=== PATIENT | male | born 1970 | race Caucasian/White ===

== ENCOUNTER 2021-05-01 08:26 | Observation (INO) | payer BC ==
[2021-05-01 09:18] LABS: Absolute Neutrophil Ct (ANC) 3.39 (1.4-6.9); Basophil (Absolute #) 0.02 (0-0.4); Eosinophil (Absolute #) 0.42 (0-0.5); Lymphocyte (Absolute #) 1.73 (1.0-4.6); Lymphocytes % 28.7 % (24.0-44.0); Mean Cell Volume 89.1 fl (78-100); Mean Corpuscular Hemoglobin 30.4 pg (26-32); Mean Corpuscular Hgb Concent. 34.1 g/dl (32-36); Monocyte (Absolute #) 0.46 (0.0-1.3); Monocytes % 7.6 % (0.0-12.0); Neutrophil % 56.4 % (36.0-66.0); Platelet Count 217 K/mm3 (150-450); Red Blood Count 4.94 M/mm3 (4.1-5.6); Red Cell Distribution Width 12.6 % (11.5-14.0)
[2021-05-01 09:39] LABS: ALBUMIN 4.2 g/dL (3.5-5.0); ALKALINE PHOSPHATASE 58 U/L (38-126); ANION GAP 11.2 MEQ/L (5-15); BLOOD UREA NITROGEN 22 mg/dL (9-20); CHLORIDE 103 mmol/L (98-107); Calcium 8.9 mg/dL (8.4-10.2); Carbon Dioxide 28 mmol/L (22-30); Creatinine 1 0.99 mg/dL (0.66-1.25); EST GLOMERULAR FILTRATION RATE > 60.0 ML/MIN; Glucose 146 mg/dL (74-106); NT PRO BNP 24.1 pg/mL (0-900); Potassium 4.2 mmol/L (3.5-5.1); SGOT/AST 26 U/L (17-59); SGPT/ALT 24 U/L (0-50); SODIUM 138 mmol/L (137-145); Total Protein 7.3 g/dL (6.3-8.2)
--- NOTE | 2021-05-01 09:45 | XRAY ---
Indication: Chest pain. Comparison: April 01, 2021. Portable chest continues to demonstrate normal heart and lungs. No new/acute findings.
--- NOTE | 2021-05-01 09:46 | ERPHSYRPT ---
- History of Present Illness Time Seen by Provider: 05/01/21 08:45 Historian: patient Exam Limitations: no limitations Patient Subjective Stated Complaint: Chest pain Triage Nursing Assessment: Patient ambulated back to ED and transferred self to bed. Patient A+O X3. Patient's skin pink, warm and dry. Patient complains of left sided chest pain that radiates down left arm into elbow 05/08. Patient states at his desk around 0730 when the pain came on and he became nauseated. Patient's lungs clear a/p judith. Heart tones audible. Physician History: Patient is a 50-year-old male presents to our ED with complaints of left-sided chest pain that radiates into his left arm down to the elbow. Patient has been experiencing left-sided chest pain with radiation intermittently. Patient's last episode occurred today at approximately 7:30 AM. Symptoms are associated with nausea. No vomiting. No diarrhea. No rash. No fever. No trauma. Symptoms are mild to moderate in intensity. No specific worsening improving factors. Patient was resting when this last episode of chest pain occurred. Patient is otherwise healthy. He voices no other complaints or concerns at this time. Timing/Duration: today Activities at Onset: none Quality: aching Location: other (Left chest) Chest Pain Radiation: arm Severity of Pain-Max: moderate Severity of Pain-Current: mild Modifying Factors: Improves With: nothing Associated Symptoms: nausea, No palpitations, No hurts to breathe, No chills, No headache, No edema Prior Chest Pain/Cardiac Workup: no prior chest pain Nitro Today/Relief: no nitro taken today Aspirin Treatment Today: no aspirin today Allergies/Adverse Reactions: No Known Drug Allergies Allergy (Verified 05/01/21 08:29) Home Medications: Levothyroxine Sodium 150 Mcg [Synthroid 150 Mcg] 150 mcg PO DAILY 01/13/12 [History] Metformin HCl 500 mg [Glucophage 500 MG] 1 tab PO DAILY 05/01/21 [History] Hx Tetanus, Diphtheria Vaccination/Date Given: No Hx Influenza Vaccination/Date Given: No Hx Pneumococcal Vaccination/Date Given: No Immunizations Up to Date: Yes Travel Risk - International Travel Have you traveled outside of the country in past 3 weeks: No - Coronavirus Screening Are you exhibiting any of the following symptoms?: No Close contact with a COVID-19 positive Pt in past 14-21 Days: No - Vaccine Status Have you recieved a Covid-19 vaccination: Yes Medical Receptionist Biller: [employer] - Vaccination Dates Date of 2cond Vaccination (if applicable): November 2020 - Review of Systems Constitutional: No Symptoms, No Fever, No Chills Eyes: No Symptoms Ears, Nose, & Throat: No Symptoms Respiratory: No Symptoms, No Cough, No Dyspnea Cardiac: No Symptoms, No Chest Pain, No Edema, No Syncope Abdominal/Gastrointestinal: No Symptoms, No Abdominal Pain, No Nausea, No Vomiting, No Diarrhea Genitourinary Symptoms: No Symptoms, No Dysuria Musculoskeletal: No Symptoms, No Back Pain, No Neck Pain Skin: No Symptoms, No Rash Neurological: No Symptoms, No Dizziness, No Focal Weakness, No Sensory Changes Psychological: No Symptoms Endocrine: No Symptoms Hematologic/Lymphatic: No Symptoms Immunological/Allergic: No Symptoms All Other Systems: Reviewed and Negative - Past Medical History Pertinent Past Medical History: Yes Neurological History: No Pertinent History ENT History: No Pertinent History Cardiac History: No Pertinent History Respiratory History: No Pertinent History Endocrine Medical History: Diabetes Type II, Hypothyroidism Musculoskeletal History: No Pertinent History GI Medical History: No Pertinent History History: No Pertinent History Psycho-Social History: No Pertinent History Male Reproductive Disorders: No Pertinent History - Past Surgical History Past Surgical History: Yes Neuro Surgical History: No Pertinent History Cardiac: No Pertinent History Respiratory: No Pertinent History Gastrointestinal: No Pertinent History Genitourinary: No Pertinent History Musculoskeletal: Orthopedic Surgery Other Surgical History: right arm - knees - Social History Smoking Status: Never smoker Exposure to second hand smoke: No Drug Use: none Patient Lives Alone: No - Nursing Vital Signs Nursing Vital Signs: Initial Vital Signs Temperature 97.8 F 05/01/21 08:32 Pulse Rate 88 05/01/21 08:32 Respiratory Rate 18 05/01/21 08:32 Blood Pressure 161/99 05/01/21 08:32 O2 Sat by Pulse Oximetry 98 05/01/21 08:32 Pain Scale Pain Intensity 3 - Physical Exam General Appearance: no apparent distress, alert Eye Exam: PERRL/EOMI, eyes nml inspection Ears, Nose, Throat Exam: normal ENT inspection, TMs normal, pharynx normal, moist mucous membranes Neck Exam: normal inspection, non-tender, supple, full range of motion Respiratory Exam: normal breath sounds, lungs clear, airway intact, No chest tenderness, No respiratory distress Cardiovascular Exam: regular rate/rhythm, normal heart sounds, normal peripheral pulses Gastrointestinal/Abdomen Exam: soft, normal bowel sounds, No tenderness, No distention, No mass Back Exam: normal inspection, normal range of motion, No CVA tenderness, No vertebral tenderness Extremity Exam: normal inspection, normal range of motion Neurologic Exam: alert, oriented x 3, cooperative, normal mood/affect, sensation nml, No motor deficits Skin Exam: normal color, warm, dry Lymphatic Exam: No adenopathy SpO2 Interpretation: normal SpO2: 98 O2 Delivery: Room Air - Course Nursing assessment & vital signs reviewed: Yes EKG Interpreted by Me: RATE (87), Sinus Rhythm, NORMAL AXIS, NORMAL INTERVALS - Radiology Exams Chest X-ray Interpretation: Teleradiologist Report (Normal heart lungs and bony thorax. No new or acute findings.) Ordered Tests: Active Orders 24 hr Category Date Time Status Greenhouse Specialist STAT Care 05/01/21 08:44 Active EKG-ER Only STAT Care 05/01/21 08:43 Active IV Insertion STAT Care 05/01/21 08:43 Active Pulse Oximetry (ED) STAT Care 05/01/21 08:43 Active CHEST 1 VIEW (PORTABLE) Stat Exams 05/01/21 08:44 Completed CBC W DIFF Stat Lab 05/01/21 09:12 Completed CMP Stat Lab 05/01/21 09:12 Completed NT PRO BNP Stat Lab 05/01/21 09:12 Completed TROPONIN Q3H Lab 05/01/21 09:12 Completed TROPONIN Q3H Lab 05/01/21 11:05 Completed TROPONIN Q3H Lab 05/01/21 14:45 Ordered TROPONIN Q3H Lab 05/01/21 17:45 Ordered TROPONIN Q3H Lab 05/01/21 20:45 Ordered Transfer Order Routine Transfer 05/01/21 Ordered Medication Summary Generic Name Dose Route Start Last Admin Trade Name Freq PRN Reason Stop Dose Admin Enoxaparin Sodium 40 mg 05/01/21 12:01 Enoxaparin Sodium 40 Mg/0.4 Ml Syringe SQ 05/01/21 12:02 STAT ONE Remdesivir 200 mg/ Sodium 250 mls @ 125 mls/hr 05/01/21 12:03 Chloride IV 05/01/21 14:02 ONCE ONE Discontinued Medications Generic Name Dose Route Start Last Admin Trade Name Freq PRN Reason Stop Dose Admin Aspirin 324 mg 05/01/21 09:55 05/01/21 10:11 Aspirin 81 Mg Tab.Chew PO 05/01/21 09:56 324 mg STAT ONE Administration Aspirin Confirm 05/01/21 10:10 Aspirin 81 Mg Tab.Chew Administered 05/01/21 10:11 Dose 324 mg .ROUTE .STK-MED ONE Nitroglycerin 1 gm 05/01/21 09:55 05/01/21 10:12 Nitroglycerin 1 Gm Packet TOP 05/01/21 09:56 1 gm STAT ONE Administration Nitroglycerin Confirm 05/01/21 10:11 Nitroglycerin 1 Gm Packet Administered 05/01/21 10:12 Dose 1 gm .ROUTE .STK-MED ONE Lab/Rad Data: Laboratory Result Diagrams 05/01/21 09:12 05/01/21 09:12 Laboratory Results 05/01/21 05/01/21 05/01/21 Range/Units 11:05 10:24 09:12 WBC (4.0-10.5) K/mm3 RBC (4.1-5.6) M/mm3 Hgb (12.5-18.0) gm/dl Hct (42-50) % MCV (78-100) fl MCH (26-32) pg MCHC (32-36) g/dl RDW (11.5-14.0) % Plt Count (150-450) K/mm3 MPV (7.5-11.0) fl Gran % (36.0-66.0) % Eos # (Auto) (0-0.5) Absolute Lymphs (auto) (1.0-4.6) Absolute Monos (auto) (0.0-1.3) Lymphocytes % (24.0-44.0) % Monocytes % (0.0-12.0) % Eosinophils % (0.00-5.0) % Basophils % (0.0-0.4) % Absolute Granulocytes (1.4-6.9) Basophils # (0-0.4) Sodium (137-145) mmol/L Potassium (3.5-5.1) mmol/L Chloride (98-107) mmol/L Carbon Dioxide (22-30) mmol/L Anion Gap (5-15) MEQ/L BUN (9-20) mg/dL Creatinine (0.66-1.25) mg/dL Estimated GFR ML/MIN Glucose (74-106) mg/dL Calcium (8.4-10.2) mg/dL Total Bilirubin (0.2-1.3) mg/dL AST (17-59) U/L ALT (0-50) U/L Alkaline Phosphatase (38-126) U/L Troponin I < 0.012 < 0.012 (0.000-0.034) ng/mL NT-Pro-B Natriuret Pep (0-900) pg/mL Serum Total Protein (6.3-8.2) g/dL Albumin (3.5-5.0) g/dL Influenza Type A Ag NEGATIVE (NEGATIVE) Influenza Type B Ag NEGATIVE (NEGATIVE) RSV (PCR) NEGATIVE (Negative) SARS-CoV-2 (PCR) POSITIVE A (NEGATIVE) 05/01/21 05/01/21 Range/Units 09:12 09:12 WBC 6.0 (4.0-10.5) K/mm3 RBC 4.94 (4.1-5.6) M/mm3 Hgb 15.0 (12.5-18.0) gm/dl Hct 44.0 (42-50) % MCV 89.1 (78-100) fl MCH 30.4 (26-32) pg MCHC 34.1 (32-36) g/dl RDW 12.6 (11.5-14.0) % Plt Count 217 (150-450) K/mm3 MPV 10.0 (7.5-11.0) fl Gran % 56.4 (36.0-66.0) % Eos # (Auto) 0.42 (0-0.5) Absolute Lymphs (auto) 1.73 (1.0-4.6) Absolute Monos (auto) 0.46 (0.0-1.3) Lymphocytes % 28.7 (24.0-44.0) % Monocytes % 7.6 (0.0-12.0) % Eosinophils % 7.0 H (0.00-5.0) % Basophils % 0.3 (0.0-0.4) % Absolute Granulocytes 3.39 (1.4-6.9) Basophils # 0.02 (0-0.4) Sodium 138 (137-145) mmol/L Potassium 4.2 (3.5-5.1) mmol/L Chloride 103 (98-107) mmol/L Carbon Dioxide 28 (22-30) mmol/L Anion Gap 11.2 (5-15) MEQ/L BUN 22 H (9-20) mg/dL Creatinine 0.99 (0.66-1.25) mg/dL Estimated GFR > 60.0 ML/MIN Glucose 146 H (74-106) mg/dL Calcium 8.9 (8.4-10.2) mg/dL Total Bilirubin 0.70 (0.2-1.3) mg/dL AST 26 (17-59) U/L ALT 24 (0-50) U/L Alkaline Phosphatase 58 (38-126) U/L Troponin I (0.000-0.034) ng/mL NT-Pro-B Natriuret Pep 24.1 (0-900) pg/mL Serum Total Protein 7.3 (6.3-8.2) g/dL Albumin 4.2 (3.5-5.0) g/dL Influenza Type A Ag (NEGATIVE) Influenza Type B Ag (NEGATIVE) RSV (PCR) (Negative) SARS-CoV-2 (PCR) (NEGATIVE) - Progress Progress: improved Air Movement: good Progress Note: 50-year-old male history of diabetes type 2 presents to our ED with recurrent chest pain. Preliminary work-up negative. EKG shows normal sinus rhythm. No ischemic changes. Initial troponin negative. Chest x-ray nonremarkable. Preliminary laboratory work-up negative as well. In light of patient's risk factors and chest pain characteristics patient will be admitted for chest pain rule out. Covid test positive. Patient will be admitted to Dr. Wyatt covering the Covid unit. Plan of care discussed with patient. He agrees to admission [facility] for further evaluation and treatment. 05/01/21 12:04 Blood Culture(s) Obtained: No Antibiotics given: No Discussed with DrKayla: Pawel ([facility] accepted admission however patient's Covid test resulted as positive.), Bobby (Case discussed with Dr. Wyatt covering the Covid unit. Dr. Wyatt accepts admission to observation.) Will see patient in: hospital (observation) Counseled pt/family regarding: lab results, diagnosis, rad results - Departure Departure Disposition: Observation Clinical Impression: ACS (acute coronary syndrome), Chest pain, SARS-CoV-2 positive Condition: Stable Critical Care Time: No Referrals: HILLARY EAGLE, [facility]ISH[facility] [employer] [Primary Care Provider] - Follow up/PCP as directed
[2021-05-01] MEDS ORDERED: NITRO-BID 2% UD PACKETS TOP ONE (09:55)
[2021-05-01] MEDS ORDERED: BABY ASPIRIN 81 MG CHEW PO ONE (09:55)
[2021-05-01] MEDS ORDERED: BABY ASPIRIN 81 MG CHEW ONE (10:10)
[2021-05-01] MEDS ORDERED: NITRO-BID 2% UD PACKETS ONE (10:11)
[2021-05-01 11:37] LABS: INFLUENZA A NEGATIVE (NEGATIVE); INFLUENZA B NEGATIVE (NEGATIVE); RESPIRATORY SYNCTIAL VIRUS NEGATIVE (Negative)
[2021-05-01 11:53] LABS: SARS-CoV-2 Xpert Express POSITIVE (NEGATIVE)
[2021-05-01] MEDS ORDERED: ENOXAPARIN SODIUM SQ ONE (12:01)
[2021-05-01] MEDS ORDERED: REMDESIVIR 200 MG in Sodium Chloride 0.9% 250 ML 250 ML IV ONE (12:03)
[2021-05-01] MEDS ORDERED: TYLENOL 325 MG PO PRN (13:59)
[2021-05-01] MEDS ORDERED: MAALOX ES 30 ML UNIT DOSE PO PRN (13:59)
[2021-05-01] MEDS ORDERED: MILK OF MAGNESIA 30 ML PO PRN (13:59)
[2021-05-01] MEDS ORDERED: Senokot-S Tablet PO PRN (13:59)
[2021-05-01] MEDS ORDERED: Zofran 4 MG/2 ML VIAL IV PRN (13:59)
[2021-05-01] MEDS: ENOXAPARIN SODIUM SQ SCH (15:17)
--- NOTE | 2021-05-01 16:46 | PCM.HP ---
History of Present Illness - Chief Complaint Chief Complaint: covid. ACS. Chest pain. History of Present Illness: is a 50 year old male who presented to the ER today with a complaint of pain in the left chest/underarm area with numbness of his left arm. He has been having similar symptoms for the last month or so but was more worrisome today, he has no associated shortness of breath, no nausea, no diaphoresis. he denies fever, cough or other signs of acute illness. of note he had family members in the home with covid in March, he tested negative and has never had any symptoms. - Review of Systems Constitutional: No Symptoms, No Fever, No Chills Respiratory: No Cough, No Short Of Breath Cardiac: Chest Pain, No Edema, No Palpitations Genitourinary Symptoms: No Dysuria Skin: No Rash Neurological: No Dizziness, No Focal Weakness, No Sensory Changes All Other Systems: Reviewed and Negative Medications & Allergies Home Medications: Home Medication List Levothyroxine Sodium 150 Mcg [Synthroid 150 Mcg] 150 mcg PO DAILY 01/13/12 [History Confirmed 05/01/21] Metformin HCl 500 mg [Glucophage 500 MG] 1 tab PO DAILY 05/01/21 [History Confirmed 05/01/21] Allergies/Adverse Reactions: Allergies Allergy/AdvReac Type Severity Reaction Status Date / Time No Known Drug Allergies Allergy Verified 05/01/21 08:29 - Past Medical History Past Medical History: Yes Neurological History: No Pertinent History ENT History: No Pertinent History Cardiac History: No Pertinent History Respiratory History: No Pertinent History Endocrine Medical History: Diabetes Type II, Hypothyroidism Musculoskelatal History: No Pertinent History GI Medical History: No Pertinent History History: No Pertinent History Pyscho-Social History: No Pertinent History Male Reproductive Disorders: No Pertinent History - Past Surgical History Past Surgical History: Yes Neuro Surgical History: No Pertinent History Cardiac History: No Pertinent History Respiratory Surgery: No Pertinent History GI Surgical History: No Pertinent History Genitourinary Surgical Hx: No Pertinent History Musculskeletal Surgical Hx: Orthopedic Surgery Other Surgical History: right arm - knees - Social History Smoking Status: Never smoker Exposure to second hand smoke: No Alcohol: None Drug Use: none - Physical Exam Vital Signs: Vital Signs - 24 hr Temp Pulse Resp BP Pulse Ox 05/01/21 15:59 85 16 96 05/01/21 14:57 97.8 F 70 16 118/75 95 05/01/21 14:44 12 05/01/21 12:06 98 05/01/21 12:05 84 18 121/78 96 05/01/21 11:05 72 18 121/80 95 05/01/21 10:26 80 18 140/76 95 05/01/21 08:56 98 05/01/21 08:32 97.8 F 88 18 161/99 98 General Appearance: no apparent distress, obese Respiratory Exam: normal breath sounds, lungs clear, No respiratory distress Cardiovascular Exam: regular rate/rhythm, normal heart sounds, normal peripheral pulses Gastrointestinal/Abdomen Exam: soft, normal bowel sounds, No tenderness, No mass Extremity Exam: normal inspection Skin Exam: normal color, warm, dry, No rash Results - Labs Lab/Micro Results: Lab Results-Last 24 Hours 05/01/21 05/01/21 05/01/21 Range/Units 09:12 09:12 09:12 WBC 6.0 (4.0-10.5) K/mm3 RBC 4.94 (4.1-5.6) M/mm3 Hgb 15.0 (12.5-18.0) gm/dl Hct 44.0 (42-50) % MCV 89.1 (78-100) fl MCH 30.4 (26-32) pg MCHC 34.1 (32-36) g/dl RDW 12.6 (11.5-14.0) % Plt Count 217 (150-450) K/mm3 MPV 10.0 (7.5-11.0) fl Gran % 56.4 (36.0-66.0) % Eos # (Auto) 0.42 (0-0.5) Absolute Lymphs (auto) 1.73 (1.0-4.6) Absolute Monos (auto) 0.46 (0.0-1.3) Lymphocytes % 28.7 (24.0-44.0) % Monocytes % 7.6 (0.0-12.0) % Eosinophils % 7.0 H (0.00-5.0) % Basophils % 0.3 (0.0-0.4) % Absolute Granulocytes 3.39 (1.4-6.9) Basophils # 0.02 (0-0.4) Sodium 138 (137-145) mmol/L Potassium 4.2 (3.5-5.1) mmol/L Chloride 103 (98-107) mmol/L Carbon Dioxide 28 (22-30) mmol/L Anion Gap 11.2 (5-15) MEQ/L BUN 22 H (9-20) mg/dL Creatinine 0.99 (0.66-1.25) mg/dL Estimated GFR > 60.0 ML/MIN Glucose 146 H (74-106) mg/dL Calcium 8.9 (8.4-10.2) mg/dL Total Bilirubin 0.70 (0.2-1.3) mg/dL AST 26 (17-59) U/L ALT 24 (0-50) U/L Alkaline Phosphatase 58 (38-126) U/L Troponin I < 0.012 (0.000-0.034) ng/mL NT-Pro-B Natriuret Pep 24.1 (0-900) pg/mL Serum Total Protein 7.3 (6.3-8.2) g/dL Albumin 4.2 (3.5-5.0) g/dL Influenza Type A Ag (NEGATIVE) Influenza Type B Ag (NEGATIVE) RSV (PCR) (Negative) SARS-CoV-2 (PCR) (NEGATIVE) 05/01/21 05/01/21 05/01/21 Range/Units 10:24 11:05 14:18 WBC (4.0-10.5) K/mm3 RBC (4.1-5.6) M/mm3 Hgb (12.5-18.0) gm/dl Hct (42-50) % MCV (78-100) fl MCH (26-32) pg MCHC (32-36) g/dl RDW (11.5-14.0) % Plt Count (150-450) K/mm3 MPV (7.5-11.0) fl Gran % (36.0-66.0) % Eos # (Auto) (0-0.5) Absolute Lymphs (auto) (1.0-4.6) Absolute Monos (auto) (0.0-1.3) Lymphocytes % (24.0-44.0) % Monocytes % (0.0-12.0) % Eosinophils % (0.00-5.0) % Basophils % (0.0-0.4) % Absolute Granulocytes (1.4-6.9) Basophils # (0-0.4) Sodium (137-145) mmol/L Potassium (3.5-5.1) mmol/L Chloride (98-107) mmol/L Carbon Dioxide (22-30) mmol/L Anion Gap (5-15) MEQ/L BUN (9-20) mg/dL Creatinine (0.66-1.25) mg/dL Estimated GFR ML/MIN Glucose (74-106) mg/dL Calcium (8.4-10.2) mg/dL Total Bilirubin (0.2-1.3) mg/dL AST (17-59) U/L ALT (0-50) U/L Alkaline Phosphatase (38-126) U/L Troponin I < 0.012 < 0.012 (0.000-0.034) ng/mL NT-Pro-B Natriuret Pep (0-900) pg/mL Serum Total Protein (6.3-8.2) g/dL Albumin (3.5-5.0) g/dL Influenza Type A Ag NEGATIVE (NEGATIVE) Influenza Type B Ag NEGATIVE (NEGATIVE) RSV (PCR) NEGATIVE (Negative) SARS-CoV-2 (PCR) POSITIVE A (NEGATIVE) - Radiology Impressions Radiology Exams & Impressions: Radiology Procedures Category Date Time Status CHEST 1 VIEW (PORTABLE) Stat Exams 05/01/21 08:44 Completed - Other Procedures and Tests Respiratory Therapy 05/01/21 13:59 EKG Q8HX2,QAMX3,PRN Respiratory Therapy Consult ROUTINE 05/01/21 16:43 EKG ONCE 05/02/21 05:00 EKG ONCE 05/03/21 05:00 EKG ONCE 05/04/21 05:00 EKG ONCE Assessment/Plan (1) Chest pain Current Visit: Yes Status: Acute Assessment & Plan: will rule out AK, requested d-dimer from blood in lab due to positive covid, I feel that his covid PCR is likely not from an acute current illness because he has no symptoms. discussed if AK rules out and no PE will recommend stress test f/u and outpatient f/u most likely. Code(s): R07.9 - CHEST PAIN, UNSPECIFIED (2) SARS-CoV-2 positive Current Visit: Yes Status: Acute Assessment & Plan: does not appear to be acute illness, no treatment required at this time. chest xray clear, lungs clear and no symptoms are present Code(s): U07.1 - COVID-19 (3) Type 2 diabetes mellitus Current Visit: Yes Status: Acute Assessment & Plan: a1c on 04/01/2021 was 7.2% on review of records, no changes
[2021-05-01] MEDS ORDERED: HUMALOG SQ PRN (16:47)
[2021-05-02 06:59] LABS: Risk Ratio 6.5
--- NOTE | 2021-05-02 08:50 | PCM.DS ---
Discharge Summary Date of Admission: 05/01/21 13:20 Admitting Physician: DANE SIERRA Primary Care Provider: HILLARY EAGLE Allergies Allergies No Known Drug Allergies Allergy (Verified 05/01/21 08:29) Hospital Summary - Hospital Course Hospital Course: patient was admitted with chest pain, no acute illness signs but covid PCR was positive. (had contacts sick in the home in March) TX was ruled out, minimal elevation of d-dimer so getting cta chest, if negative home with plans for outpatient stress test - Vitals & Intake/Output Vital Signs: Vital Signs Temperature 97.9 F 05/02/21 05:00 Pulse Rate 76 05/02/21 06:50 Respiratory Rate 24 05/02/21 07:37 Blood Pressure 127/72 05/02/21 05:00 O2 Sat by Pulse Oximetry 94 L 05/02/21 07:27 Intake & Output: Intake & Output 04/29/21 04/30/21 05/01/21 05/02/21 11:59 11:59 11:59 11:59 Intake Total 711 Output Total 970 Balance -259 Weight 124.738 kg 128.1 kg - Lab Result Diagrams: 05/01/21 09:12 05/01/21 09:12 Lab Results-Last 24 Hrs: Lab Results-Last 24 Hours 05/01/21 05/01/21 05/01/21 Range/Units 09:12 09:12 09:12 WBC 6.0 (4.0-10.5) K/mm3 RBC 4.94 (4.1-5.6) M/mm3 Hgb 15.0 (12.5-18.0) gm/dl Hct 44.0 (42-50) % MCV 89.1 (78-100) fl MCH 30.4 (26-32) pg MCHC 34.1 (32-36) g/dl RDW 12.6 (11.5-14.0) % Plt Count 217 (150-450) K/mm3 MPV 10.0 (7.5-11.0) fl Gran % 56.4 (36.0-66.0) % Eos # (Auto) 0.42 (0-0.5) Absolute Lymphs (auto) 1.73 (1.0-4.6) Absolute Monos (auto) 0.46 (0.0-1.3) Lymphocytes % 28.7 (24.0-44.0) % Monocytes % 7.6 (0.0-12.0) % Eosinophils % 7.0 H (0.00-5.0) % Basophils % 0.3 (0.0-0.4) % Absolute Granulocytes 3.39 (1.4-6.9) Basophils # 0.02 (0-0.4) D-Dimer (215-500) ng/mL Sodium 138 (137-145) mmol/L Potassium 4.2 (3.5-5.1) mmol/L Chloride 103 (98-107) mmol/L Carbon Dioxide 28 (22-30) mmol/L Anion Gap 11.2 (5-15) MEQ/L BUN 22 H (9-20) mg/dL Creatinine 0.99 (0.66-1.25) mg/dL Estimated GFR > 60.0 ML/MIN Glucose 146 H (74-106) mg/dL POC Glucometer (74 to 106) mg/dL Calcium 8.9 (8.4-10.2) mg/dL Total Bilirubin 0.70 (0.2-1.3) mg/dL AST 26 (17-59) U/L ALT 24 (0-50) U/L Alkaline Phosphatase 58 (38-126) U/L Troponin I < 0.012 (0.000-0.034) ng/mL NT-Pro-B Natriuret Pep 24.1 (0-900) pg/mL Serum Total Protein 7.3 (6.3-8.2) g/dL Albumin 4.2 (3.5-5.0) g/dL Triglycerides (30-150) mg/dL Cholesterol (50-200) mg/dL LDL Cholesterol (30-100) mg/dL HDL Cholesterol (40-60) mg/dL Heart Disease Risk Ratio Influenza Type A Ag (NEGATIVE) Influenza Type B Ag (NEGATIVE) RSV (PCR) (Negative) SARS-CoV-2 (PCR) (NEGATIVE) 05/01/21 05/01/21 05/01/21 Range/Units 10:24 11:05 14:18 WBC (4.0-10.5) K/mm3 RBC (4.1-5.6) M/mm3 Hgb (12.5-18.0) gm/dl Hct (42-50) % MCV (78-100) fl MCH (26-32) pg MCHC (32-36) g/dl RDW (11.5-14.0) % Plt Count (150-450) K/mm3 MPV (7.5-11.0) fl Gran % (36.0-66.0) % Eos # (Auto) (0-0.5) Absolute Lymphs (auto) (1.0-4.6) Absolute Monos (auto) (0.0-1.3) Lymphocytes % (24.0-44.0) % Monocytes % (0.0-12.0) % Eosinophils % (0.00-5.0) % Basophils % (0.0-0.4) % Absolute Granulocytes (1.4-6.9) Basophils # (0-0.4) D-Dimer (215-500) ng/mL Sodium (137-145) mmol/L Potassium (3.5-5.1) mmol/L Chloride (98-107) mmol/L Carbon Dioxide (22-30) mmol/L Anion Gap (5-15) MEQ/L BUN (9-20) mg/dL Creatinine (0.66-1.25) mg/dL Estimated GFR ML/MIN Glucose (74-106) mg/dL POC Glucometer (74 to 106) mg/dL Calcium (8.4-10.2) mg/dL Total Bilirubin (0.2-1.3) mg/dL AST (17-59) U/L ALT (0-50) U/L Alkaline Phosphatase (38-126) U/L Troponin I < 0.012 < 0.012 (0.000-0.034) ng/mL NT-Pro-B Natriuret Pep (0-900) pg/mL Serum Total Protein (6.3-8.2) g/dL Albumin (3.5-5.0) g/dL Triglycerides (30-150) mg/dL Cholesterol (50-200) mg/dL LDL Cholesterol (30-100) mg/dL HDL Cholesterol (40-60) mg/dL Heart Disease Risk Ratio Influenza Type A Ag NEGATIVE (NEGATIVE) Influenza Type B Ag NEGATIVE (NEGATIVE) RSV (PCR) NEGATIVE (Negative) SARS-CoV-2 (PCR) POSITIVE A (NEGATIVE) 03/05/2005/01/21 05/01/21 Range/Units 16:45 17:03 18:00 WBC (4.0-10.5) K/mm3 RBC (4.1-5.6) M/mm3 Hgb (12.5-18.0) gm/dl Hct (42-50) % MCV (78-100) fl MCH (26-32) pg MCHC (32-36) g/dl RDW (11.5-14.0) % Plt Count (150-450) K/mm3 MPV (7.5-11.0) fl Gran % (36.0-66.0) % Eos # (Auto) (0-0.5) Absolute Lymphs (auto) (1.0-4.6) Absolute Monos (auto) (0.0-1.3) Lymphocytes % (24.0-44.0) % Monocytes % (0.0-12.0) % Eosinophils % (0.00-5.0) % Basophils % (0.0-0.4) % Absolute Granulocytes (1.4-6.9) Basophils # (0-0.4) D-Dimer 518 H* (215-500) ng/mL Sodium (137-145) mmol/L Potassium (3.5-5.1) mmol/L Chloride (98-107) mmol/L Carbon Dioxide (22-30) mmol/L Anion Gap (5-15) MEQ/L BUN (9-20) mg/dL Creatinine (0.66-1.25) mg/dL Estimated GFR ML/MIN Glucose (74-106) mg/dL POC Glucometer 174 H (74 to 106) mg/dL Calcium (8.4-10.2) mg/dL Total Bilirubin (0.2-1.3) mg/dL AST (17-59) U/L ALT (0-50) U/L Alkaline Phosphatase (38-126) U/L Troponin I < 0.012 (0.000-0.034) ng/mL NT-Pro-B Natriuret Pep (0-900) pg/mL Serum Total Protein (6.3-8.2) g/dL Albumin (3.5-5.0) g/dL Triglycerides (30-150) mg/dL Cholesterol (50-200) mg/dL LDL Cholesterol (30-100) mg/dL HDL Cholesterol (40-60) mg/dL Heart Disease Risk Ratio Influenza Type A Ag (NEGATIVE) Influenza Type B Ag (NEGATIVE) RSV (PCR) (Negative) SARS-CoV-2 (PCR) (NEGATIVE) 05/01/21 05/01/21 05/02/21 Range/Units 20:54 20:58 04:00 WBC (4.0-10.5) K/mm3 RBC (4.1-5.6) M/mm3 Hgb (12.5-18.0) gm/dl Hct (42-50) % MCV (78-100) fl MCH (26-32) pg MCHC (32-36) g/dl RDW (11.5-14.0) % Plt Count (150-450) K/mm3 MPV (7.5-11.0) fl Gran % (36.0-66.0) % Eos # (Auto) (0-0.5) Absolute Lymphs (auto) (1.0-4.6) Absolute Monos (auto) (0.0-1.3) Lymphocytes % (24.0-44.0) % Monocytes % (0.0-12.0) % Eosinophils % (0.00-5.0) % Basophils % (0.0-0.4) % Absolute Granulocytes (1.4-6.9) Basophils # (0-0.4) D-Dimer (215-500) ng/mL Sodium (137-145) mmol/L Potassium (3.5-5.1) mmol/L Chloride (98-107) mmol/L Carbon Dioxide (22-30) mmol/L Anion Gap (5-15) MEQ/L BUN (9-20) mg/dL Creatinine (0.66-1.25) mg/dL Estimated GFR ML/MIN Glucose (74-106) mg/dL POC Glucometer 113 H (74 to 106) mg/dL Calcium (8.4-10.2) mg/dL Total Bilirubin (0.2-1.3) mg/dL AST (17-59) U/L ALT (0-50) U/L Alkaline Phosphatase (38-126) U/L Troponin I < 0.012 (0.000-0.034) ng/mL NT-Pro-B Natriuret Pep (0-900) pg/mL Serum Total Protein (6.3-8.2) g/dL Albumin (3.5-5.0) g/dL Triglycerides 111 (30-150) mg/dL Cholesterol 178 (50-200) mg/dL LDL Cholesterol 111 H (30-100) mg/dL HDL Cholesterol 28 L (40-60) mg/dL Heart Disease Risk Ratio 6.5 Influenza Type A Ag (NEGATIVE) Influenza Type B Ag (NEGATIVE) RSV (PCR) (Negative) SARS-CoV-2 (PCR) (NEGATIVE) 05/02/21 Range/Units 07:24 WBC (4.0-10.5) K/mm3 RBC (4.1-5.6) M/mm3 Hgb (12.5-18.0) gm/dl Hct (42-50) % MCV (78-100) fl MCH (26-32) pg MCHC (32-36) g/dl RDW (11.5-14.0) % Plt Count (150-450) K/mm3 MPV (7.5-11.0) fl Gran % (36.0-66.0) % Eos # (Auto) (0-0.5) Absolute Lymphs (auto) (1.0-4.6) Absolute Monos (auto) (0.0-1.3) Lymphocytes % (24.0-44.0) % Monocytes % (0.0-12.0) % Eosinophils % (0.00-5.0) % Basophils % (0.0-0.4) % Absolute Granulocytes (1.4-6.9) Basophils # (0-0.4) D-Dimer (215-500) ng/mL Sodium (137-145) mmol/L Potassium (3.5-5.1) mmol/L Chloride (98-107) mmol/L Carbon Dioxide (22-30) mmol/L Anion Gap (5-15) MEQ/L BUN (9-20) mg/dL Creatinine (0.66-1.25) mg/dL Estimated GFR ML/MIN Glucose (74-106) mg/dL POC Glucometer 130 H (74 to 106) mg/dL Calcium (8.4-10.2) mg/dL Total Bilirubin (0.2-1.3) mg/dL AST (17-59) U/L ALT (0-50) U/L Alkaline Phosphatase (38-126) U/L Troponin I (0.000-0.034) ng/mL NT-Pro-B Natriuret Pep (0-900) pg/mL Serum Total Protein (6.3-8.2) g/dL Albumin (3.5-5.0) g/dL Triglycerides (30-150) mg/dL Cholesterol (50-200) mg/dL LDL Cholesterol (30-100) mg/dL HDL Cholesterol (40-60) mg/dL Heart Disease Risk Ratio Influenza Type A Ag (NEGATIVE) Influenza Type B Ag (NEGATIVE) RSV (PCR) (Negative) SARS-CoV-2 (PCR) (NEGATIVE) Micro Results-Entire Visit: Accuchecks Date 05/02/21 Date 05/01/21 Time 07:28 Time 17:06 - Radiology Exams Ordered Rad Exams-Entire Visit: Radiology Procedures Category Date Time Status CHEST 1 VIEW (PORTABLE) Stat Exams 05/01/21 08:44 Completed CTA CHEST W AND/OR WO [CT] Urgent Exams 05/02/21 08:31 Ordered - Procedures and Test Procedures and Tests throughout Hospitalization: Therapy Orders & Screens 05/01/21 13:59 EKG [id number],QAMX3,PRN Comment: Respiratory Therapy Consult ROUTINE Comment: Reason For Exam: 05/01/21 15:12 OT Screen per Nursing Assess ONCE Comment: Protocol Order Physician Instructions: Greater than 3 points order OT Admission Screening Reason For Exam: Triggered on Admission Diagnosis: covid. ACS. Chest pain. Open Wound/Cellutlitis/Pressure Ulcers: No Acute Fx/ORIF/Change in wt bearing status: No Severe MUSCULOSKELETAL pain: Yes: numbness and tingling ADL Dysfunction: No Acute CVA w/Hemiparesis/Hemiplegia: No Decreased Functional Mobility/Strength: No Sprain/Strain: No Acute Post-op Mobility Dysfunction: No Total Points: 5 PT Screen per Nursing Assess ONCE Comment: Protocol Order Physician Instructions: Greater than 3 points order PT Admission Screenin Reason For Exam: Triggered on Admission Diagnosis: covid. ACS. Chest pain. Open Wound/Cellutlitis/Pressure Ulcers: No Acute Fx/ORIF/Change in wt bearing status: No Severe MUSCULOSKELETAL pain: Yes: numbness and tingling ADL Dysfunction: No Acute CVA w/Hemiparesis/Hemiplegia: No Decreased Functional Mobility/Strength: No Sprain/Strain: No Acute Post-op Mobility Dysfunction: No Total Points: 5 05/01/21 16:43 EKG ONCE Comment: Diagnosis: covid. ACS. Chest pain. 05/02/21 05:00 EKG ONCE Comment: Diagnosis: covid. ACS. Chest pain. 05/03/21 05:00 EKG ONCE Comment: Diagnosis: covid. ACS. Chest pain. 05/04/21 05:00 EKG ONCE Comment: Diagnosis: covid. ACS. Chest pain. Discharge Exam General Appearance: no apparent distress, obese Neurologic Exam: alert, oriented x 3 Respiratory Exam: normal breath sounds, lungs clear, No respiratory distress Cardiovascular Exam: regular rate/rhythm, normal heart sounds Gastrointestinal/Abdomen Exam: soft, No tenderness, No mass Extremity Exam: normal inspection, normal range of motion Skin Exam: normal color, warm, dry Final Diagnosis/Problem List - Final Discharge Diagnosis/Problem (1) Chest pain Current Visit: Yes Status: Acute Assessment & Plan: TX ruled out, home on 81mg aspirin. will schedle outpatient stress test upon discharge. may well be related to covid/pleuritic pain Code(s): R07.9 - CHEST PAIN, UNSPECIFIED (2) SARS-CoV-2 positive Current Visit: Yes Status: Acute Code(s): U07.1 - COVID-19 (3) Type 2 diabetes mellitus Current Visit: Yes Status: Acute - Discharge Disposition: Home, Self-Care Condition: Stable Prescriptions: New Aspirin EC 81 mg [Ecotrin 81 mg] 81 mg PO DAILY #30 tablet Continue Levothyroxine Sodium 150 Mcg [Synthroid 150 Mcg] 150 mcg PO DAILY Metformin HCl 500 mg [Glucophage 500 MG] 1 tab PO DAILY Outpatient Orders: Stress Test: Cardiolyte Facility: [facility], Location: RESPIRATORY THERAPY Follow up with: HILLARY EAGLE NP [Primary Care Provider] - 1 Week
[2021-05-02] MEDS: ENOXAPARIN SODIUM SQ SCH (09:51)
[2021-05-02] MEDS ORDERED: SYNTHROID 150 MCG PO SCH (10:00)
--- NOTE | 2021-05-02 11:30 | XRAY ---
Indication: Positive Covid 19. Elevated d-dimer. Multiple contiguous axial images obtained through the chest using 100 cc Isovue 370 contrast and PE protocol. Comparison: None There is adequate opacification of the pulmonary arteries to include the lobar and segmental branches. No pulmonary embolus. Heart is not enlarged. Aorta is normal in course and caliber. No pathologic mediastinal/hilar lymphadenopathy. Lungs inflated and clear. Bony thorax intact with mild degenerative changes throughout the spine. Limited upper abdomen demonstrates fatty liver. Impression: Normal CT chest PE exam. Incidental fatty liver.
[2021-05-02 12:15] VITALS: BP 132/89; PULSE 76; O2SAT 97
== END 2021-05-02 12:38 | disposition home or self-care (01) ==
LOC: ED 08:26 → MED SURG 13:20
PROVIDERS: ADMIT Family Medicine; ATTEND Family Medicine
DX: R07.9 Chest pain, unspecified (principal); U07.1 COVID-19; E11.9 Type 2 diabetes mellitus without complications; E03.9 Hypothyroidism, unspecified; Z79.899 Other long term (current) drug therapy; Z20.828 Contact with and (suspected) exposure to other viral communicable diseases
CPT/HCPCS: 0241U; 36000; 36415; 71045; 71260; 80053; 80061; 82947; 83721; 83880; 84484; 85025; 85379; 93005; 93041; 93268; 94760; 94762; 99285; G0378; J0248; J1650; A9270-GY

== ENCOUNTER 2023-05-03 10:31 | Day surgery (SDC) | payer BC ==
--- NOTE | 2023-05-03 09:49 | HP ---
DATE OF SURGERY: 05/03/2023 HISTORY OF PRESENT ILLNESS: The patient is a 52-year-old with bulge left mid abdomen, lost 35 to 40 pounds. He has a lot of pain and definite bulge. PAST MEDICAL HISTORY: Hypothyroidism. Diabetes type II. PAST SURGICAL HISTORY: Colonoscopy. Knee replacement. Compound fracture right arm. Reconstruction of the ankle in the past. Right total knee in the past. MEDICATIONS: Rybelsus, levothyroxine. ALLERGIES: NKDA. FAMILY HISTORY: Hypothyroidism. Hypertension. SOCIAL HISTORY: No smoking or alcohol abuse. REVIEW OF SYSTEMS: Twelve systems reviewed. No chest pain or palpitations. Other systems negative or noncontributory as above and per preadmission questionnaire. PHYSICAL EXAMINATION: Height 5 feet 11 inches. BMI 33.47. GENERAL: No acute distress. HEENT: Sclerae nonicteric. EOMI. Oral mucous membranes moist. NECK: No JVD. CHEST: Equal excursion, nonlabored breathing. CVS: Regular rate and rhythm. ABDOMEN: Soft. Abdominal incarcerated hernia likely preperitoneal fat or omentum. EXTREMITIES: No cyanosis or edema. NEURO: Alert, oriented, moving extremities symmetrically. PSYCH: Appropriate mood and affect. SKIN: Dry. IMPRESSION: Incarcerated ventral hernia. He was offered repair. Options discussed open versus laparoscopic repair. Explained the details including but not limited to bleeding or infection, risk of hematoma or seroma formation, risk of trocar injury, bowel, bladder, blood vessel injury. Risk of mesh infection possibly requiring removal. Risk of aches, pains, burning, numbness possibly long-term or chronic. Risk of adhesion, scar formation or bowel obstruction, perioperative ileus. Risk of mesh fracture or failure possibly creating issues with viscera or other structures, risk of ongoing morbidity/mortality, general risk of anesthesia, sedation, deep venous thrombosis, pulmonary embolism, pneumonia. Risk of hernia recurrence but not limited to. The patient understands all of the above and prefers to proceed with laparoscopic assisted possible open ventral hernia repair with mesh. Otherwise, continue medications for thyroid disease, anxiety, diabetes.
[2023-05-03] MEDS ORDERED: EXPAREL 133 MG/10 ML VIAL IJ ONE (10:32)
[2023-05-03] MEDS ORDERED: CEFAZOLIN 2 GM-D5W BAG** 2 GM/50 ML ML IV ONE (10:50)
[2023-05-03] MEDS ORDERED: MEFOXIN 2 GM PREMIX** 2 GM/50 ML ML IV SCH (11:00)
[2023-05-03] MEDS: Pepcid 20 MG VIAL IV ONE (11:03)
[2023-05-03] MEDS: Lactated Ringers 1,000 ML IV SCH (11:04)
[2023-05-03] MEDS: CEFAZOLIN 2 GM-D5W BAG** 2 GM/50 ML ML IV SCH (11:04)
[2023-05-03] MEDS ORDERED: Zofran 4 MG/2 ML VIAL ONE (12:34)
[2023-05-03] MEDS ORDERED: DIPRIVAN 200 MG/20 ML IV ONE ×2 (12:34→14:28)
[2023-05-03] MEDS ORDERED: Xylocaine-Mpf 2% 5 Ml Vial ONE (12:36)
[2023-05-03] MEDS ORDERED: OFIRMEV 100 ML IV ONE (12:37)
[2023-05-03] MEDS ORDERED: Marcaine Mpf 0.5% Vial 30 Ml ONE (12:37)
[2023-05-03] MEDS ORDERED: SUBLIMAZE 100 MCG/2 ML ONE ×3 (12:43→15:45)
[2023-05-03] MEDS ORDERED: Zemuron 100 MG/10 ML ONE ×2 (12:47→13:47)
[2023-05-03] MEDS ORDERED: BREVIBLOC 100 MG/10 ML IV ONE (13:08)
[2023-05-03] MEDS ORDERED: DEXMEDETOMIDINE 80 MCG/20ML-NS IV ONE (13:10)
[2023-05-03] MEDS ORDERED: Ephedrine Sulfate 50 MG/ML ONE (13:28)
[2023-05-03] MEDS ORDERED: BRIDION 200MG/2ML IV ONE (14:18)
[2023-05-03 15:09] LABS: Appearance Clear (Clear); Bilirubin Negative (Negative); Blood NHT (Negative); Glucose, Urine Negative (Negative); Hyaline Casts NONE SEEN /LPF (0-2); Ketones 80 (Negative); Leukocyte Esterase Negative (Negative); Nitrite Negative (Negative); Protein,Urine Dip Negative (Negative); Specific Gravity 1.025 (1.005-1.030)
[2023-05-03] MEDS ORDERED: Lactated Ringers 1,000 ML IV ONE (15:16)
[2023-05-03 15:34] LABS: Bacteria Rare /HPF (None Seen); Epithelial Cells Rare /HPF (None Seen)
[2023-05-03 16:25] VITALS: RESP 18; O2SAT 97
[2023-05-03 16:38] VITALS: BP 140/86; PULSE 90; TEMP 97.2
--- NOTE | 2023-05-04 10:52 | OP ---
SURGERY DATE/TIME: 05/03/2023 1257 PREOPERATIVE DIAGNOSIS: Symptomatic incarcerated ventral hernia. POSTOPERATIVE DIAGNOSIS: Symptomatic incarcerated ventral hernia. PROCEDURE: Laparoscopic-assisted repair of incarcerated ventral hernia (approximately 5 to 5.5 cm in size) with mesh. SURGEON: Dr. Evans Karimi. ANESTHESIA: General. ESTIMATED BLOOD LOSS: Minimal. INDICATIONS: As noted above. Risks and benefits explained in detail and not limited to and consent obtained. DESCRIPTION OF PROCEDURE AND FINDINGS: The patient is taken to the operating room. General anesthesia induced. The patient prepped and draped in usual sterile fashion. After official time out and no disagreement with planned procedure, a transverse incision made in the left subcostal area. He is a little bit overweight so it was necessary to use a larger needle. Carefully inserted and tested with saline. Pneumoperitoneum accomplished opening pressure 0 to 15. A 5 mm bladeless port and camera were inserted without difficulty, left lateral and mid abdomen 5 mm port left lower quadrant, a 5 mm ports were placed under direct vision of the camera. At this point, the incarcerated omentum there was a large amount omentum in this large hernia. Slowly and carefully reduced with the aid of a LigaSure device used on the preperitoneal fat that was incarcerated as well. The preperitoneal fat was cleared circumferentially around the area to allow for placement of mesh. Using a spinal needle the defect measured about 5 to 5.5 cm so it warranted 11.[address] to allow for overlap in all directions. The mesh was carefully brought in marking the skin. Once this was accomplished, transverse incision made cephalad to the defect. Using a clamp dissecting out the hernia and some interrupted #1 Vicryl was placed bringing the fascia back to the midline and these were temporarily tagged. The mesh carefully wet after it had been tagged in four quadrants with 0 Ethibond, carefully wet and rolled and easily inserted in the abdomen. The port was removed. Pressure is turned down. #1 Vicryl transfascial sutures secured at this time. The mesh brought up with the balloon. The balloon carefully inflated over the defect and four quadrant 0 Ethibond pulled up and tied transfascially through four separate stab wounds. The mesh was lying nide and flat. It was then tacked around the periphery 0.5 cm apart with a Capture Tacker. Later, the SorbaFix Tacker was placed in more centrally. Mesh is nice and flat in a tension free manner. Again, the pressure had been turned down to 8. On careful inspection there was no evidence of any issues secondary to Veress needle or port placement or the procedure itself. At this point, pneumoperitoneum decompressed. The subcu closed with 0 Vicryl, skin closed with closed with 4-0 Vicryl. Port sites closed with 4-0 Vicryl. Sterile dressings were applied. Anesthesia applied tap blocks otherwise he is going to get a binder and sterile dressing. He was transferred to the recovery room in stable condition. Findings discussed with the family out in the waiting area.
== END 2023-05-03 16:38 | disposition home or self-care (01) ==
LOC: SDC 10:31
PROVIDERS: ATTEND Surgery
DX: K43.6 Other and unspecified ventral hernia with obstruction, without gangrene (principal); E11.9 Type 2 diabetes mellitus without complications
CPT/HCPCS: 81001; 82947; 87086; J0690; J2405; J2704; J3010

== ENCOUNTER 2023-11-19 06:25 | Day surgery (SDC) | payer BC ==
[2023-11-19] MEDS ORDERED: Lactated Ringers 1,000 ML IV ONE (06:51)
[2023-11-19] MEDS: Lactated Ringers 1,000 ML IV SCH (06:58)
[2023-11-19] MEDS ORDERED: DIPRIVAN 200 MG/20 ML IV ONE ×2 (07:48→08:04)
[2023-11-19] MEDS ORDERED: Xylocaine-Mpf 2% 5 Ml Vial ONE (07:48)
[2023-11-19 08:41] VITALS: RESP 18; TEMP 97; O2SAT 98
[2023-11-19 08:50] VITALS: BP 94/75; PULSE 63
--- NOTE | 2023-11-22 00:35 | OP ---
SURGERY DATE/TIME: 11/19/2023 [id number] PREOPERATIVE DIAGNOSIS: Screening exam. POSTOPERATIVE DIAGNOSIS: Normal colon. PROCEDURE: Colonoscopy. SURGEON: Igor Luu MD ANESTHESIA: Medications were given by the anesthesia department. INDICATIONS: The patient is a 53-year-old white male patient presenting for screening colonoscopy. The patient was appraised of the risks of the procedure including risk of perforation, phlebitis, untoward reaction to medication, bleeding, and missed lesions. The patient verbalized his understanding and desire to have procedure performed. DESCRIPTION OF PROCEDURE AND FINDINGS: The patient was given medication by the anesthesia department and had continuous pulse oximetry, ECG monitoring, and intermittent blood pressure monitoring during the examination. He was placed in the left lateral decubitus position. Digital rectal examination was performed and revealed normal anal sphincter tone, no masses, and a normal prostate. The flexible Olympus videocolonoscope was used to intubate the rectum. A view of the colon was developed sequentially to the cecum. Upon insertion and withdrawal, including retroflexed view in the rectum, no mucosal lesions were encountered. The scope was removed. The patient tolerated the procedure well and was sent back to outpatient recovery in good condition. The prep was noted to be fair to good.
== END 2023-11-19 09:11 | disposition home or self-care (01) ==
LOC: SDC 06:25
PROVIDERS: ATTEND Family Medicine
DX: Z12.11 Encounter for screening for malignant neoplasm of colon (principal); E11.9 Type 2 diabetes mellitus without complications
CPT/HCPCS: 82947; J2704